=== PATIENT | male | born 1930 | race Caucasian/White ===

== ENCOUNTER 2018-06-01 15:28 | Emergency (ER) | payer OTHER, MEDICARE ==
[~2018-06-01] VITALS: Ht 177.8 cm; Wt 70.0 kg
[~2018-06-01 15:28] MED LIST: ACETONIDE; ALPH-E400 UNIT PO; ANDROGEL TD; ANDROGEL1 %; ANDROGEL1 % EX; ANDROGEL1 % TD; ASPIRIN ADULT L81 MG PO; ASPIRIN EC81 MG PO; BACLOFEN10 MG PO; CLARITIN10 M1 PO; CLOTRIM/BET1 EX; CLOTRIMAZOLE13 EX; DARVOCET N-100100 - OR; DARVOCET OR; DARVOCET-N 100100 MG OR; DETROL LA4 MG OR; ERYTHROM ETH400 MG OR; FLOMAX0.4 M1 OR; FLOMAX0.4 MG OR; FLONASE NASAL50 MCG; FLUARIX QUADRIV1 IN1 IM; HALCION0.25 MG PO; HYDROCO/APAP1 TA1 OR; IBUPROFEN800 MG PO; LOPRESSOR25 MG OR; LOPRESSOR25 MG PO; LORATADINE10 M1 PO; LORTAB 10-325 M1 TAB PO; LORTAB 5 OR; LORTAB 7.5 PO; LOTRISONE EX; LOVASTATIN20 MG OR; LOVAZA1 GM PO; MEDDOSEPAK PO; METOPROL TAR25 MG PO; MIRAPEX0.5 MG PO; MOTRIN400 MG PO; MULTI VIT PO; MULTI-VIT PO; NEXIUM40 M1 PO; OXYCODONE HCL5 MG PO; PATANASE0.6 %; PERCOCET 5/321 COMBO PO; PRAMIPEXOLE0.5 MG PO; RAPAFLO8 MG PO; SAM-E200 MG PO; TIZANIDINE HCL4 M1 PO; TIZANIDINE4 MG PO; TRAZODONE100 MG PO; TRIAMCINOLON0.025 % EX; TRIAZOLAM0.25 MG OR; TRIAZOLAM0.25 MG PO; TRICOR145 MG PO; TYLENOL 500MG TAB PO; VITAMIN D-31000 UNIT PO; VITAMIN D-32000 UNIT PO; VITAMIN E400 UNIT PO; ZANAFLEX4 M2 PO
[2018-06-01] MEDS ORDERED: MUPIROCIN21 TOP (16:22)
[2018-06-01 16:52] VITALS: BP 140/71
== END 2018-06-01 16:59 | disposition home or self-care (01) | DRG 605 ==
LOC: ED 15:28
DX: S40.011A Contusion of right shoulder, initial encounter (principal); S60.221A Contusion of right hand, initial encounter; S00.83XA Contusion of other part of head, initial encounter; S80.01XA Contusion of right knee, initial encounter; Y92.830 Public park as the place of occurrence of the external cause; W01.0XXA Fall on same level from slipping, tripping and stumbling without subsequent striking against object, initial encounter

== ENCOUNTER 2018-09-11 11:57 | Observation (INO) | payer MEDICARE ==
[~2018-09-11] VITALS: Ht 177.8 cm; Wt 71.9 kg
[~2018-09-11 11:57] MED LIST changes: +MUPIROCIN21 TOP
--- NOTE | 2018-09-11 12:20 | NUR ---
PT ARRIVED ON UNIT VIA W/C DIRECT ADMIT, ALERT AND ORIENTED X 4, ORIENTED TO ROOM AND CALL COHEN, SETTLED IN ROOM, DENIED PAIN, COUGHING OCCASIONLALLY; NON-PRODUCTIVE. ERROR MADE BY REGISTRATION BY PLACING IN WRONG ROOM CAUSING DELAY IN ORDER PROCESSING BUT THIS WAS RESOLVED WHEN DISCOVERED. PT ALTER C/O TV WAS MALFUNCTIONAL, SOAP DISPENSER IN BR FELL AND HIT HIS HAND AND PAPER DISPENCER NOT WORKING. PT WAS THEN MOVED TO ANOTHER ROOM WHERE HE WAS MORE SATISFIED, WILL CONTINUE TO MONITOR.
[2018-09-11 13:35] VITALS: BP 127/73
[2018-09-11 14:17] LABS: HEMATOCRIT 40.3 % (39.0-50.0); HEMOGLOBIN 13.3 g/dl (14.0-18.0); IMMATURE GRANULOCYTES 0.6 % (0.0-5.0); MEAN CELL VOLUME 91.8 fL CALC (80.0-100.0); MEAN CORPUSCULAR HGB 30.3 pG CALC (26.0-32.0); NEUT# 5.02 thou/uL (1.82-7.42); RED BLOOD COUNT 4.39 mill/uL (4.70-6.10); RED CELL DISTRI WIDTH 12.3 % (11.5-15.5)
[2018-09-11 14:29] LABS: CREATININE 1.6 mg/dL (0.7-1.3); POTASSIUM 4.7 mmol/l (3.5-5.1)
--- NOTE | 2018-09-11 19:22 | NUR ---
PATIENT RESTING IN BED WITH HOB ELEVATED. PATIENT IS AWAKE ALERT AND ORIENTEDX3. S/O VISITING AT BEDSIDE. PATIENT WITH IV SITE TO LEFT FOREARM WITH IVF D51/2NS PATENT AND INFUSING AT 75CC/HR. SITE APPEARS HEALTHY. PATIENT WITH NON-PRODUCTIVE COUGH. LUNGS ARE CLEAR AT THIS TIME. ABD IS SOFT. NO BM SINCE LAST TUESDAY-WILL PROVIDE PATIENT WITH PRUNE JUICE. SAFETY PRECAUTIONS REINFORCED. CALL LIGHT IN REACH. WILL CONT TO MONITOR.
[2018-09-11 19:40] VITALS: BP 147/90
--- NOTE | 2018-09-11 23:17 | NUR ---
PATIENT RESTING IN BED WATCHING TV REQUESTING ICE CREAM AND IT WAS PROVIDED. MEDICATED WITH TRAZADONE 200MG PO FOR SLEEP. IVF PATENT AND INFUSING AT 75CC/HR. SAFETY PRECAUTIONS REINFORCED. CALL LIGHT IN REACH. WILL CONT TO MONITOR.
--- NOTE | 2018-09-12 02:35 | NUR ---
APPEARS SLEEPING AT THIS TIME WITH EYES CLOSED. IVF PATENT AND INFUSING AT 75CC/HR VIA LEFT FOREARM SITE. CALL LIGHT IN REACH. WILL CONT TO MONITOR.
[2018-09-12 03:50] VITALS: BP 111/65
[2018-09-12 05:25] LABS: HEMOGLOBIN 12.4 g/dl (14.0-18.0); IMMATURE GRANULOCYTES 0.4 % (0.0-5.0); MEAN CELL VOLUME 91.6 fL CALC (80.0-100.0); MEAN CORPUSCULAR HGB 30.7 pG CALC (26.0-32.0); MEAN CORPUSCULAR HGB CONC 33.5 g/L CALC (32.0-36.0); NEUT# 4.72 thou/uL (1.82-7.42); RED BLOOD COUNT 4.04 mill/uL (4.70-6.10); RED CELL DISTRI WIDTH 12.3 % (11.5-15.5)
[2018-09-12 05:29] LABS: BILIRUBIN, TOTAL 0.3 mg/dL (0.0-1.4); CREATININE 1.4 mg/dL (0.7-1.3); TOTAL PROTEIN 5.6 g/dL (6.3-8.2)
[2018-09-12 05:30] LABS: ALBUMIN 2.9 g/dL (3.2-5.0)
--- NOTE | 2018-09-12 07:00 | NUR ---
SHIFT CHANGE REPORT FROM PEDRITO CANSECO AWAKE ALERT AND ORIENTED RESTING IN BED, STATES HE FEELS MUCH BETTER TODAY, IVF INFUSING, CALL COHEN IN REACH.
[2018-09-12 08:00] VITALS: BP 123/67
--- NOTE | 2018-09-12 12:00 | NUR ---
RESTING IN BED AFTER MEAL, ALL NEEDS ADDRESSED.
--- NOTE | 2018-09-12 12:38 | NUR ---
RESTING COMFORTABLY AFTER MEAL, ALL NEEDS ADDRESSED, CALL COHEN IN REACH.
--- NOTE | 2018-09-12 16:00 | NUR ---
SITTING UP ON SOFA, SPOUSE AT BEDSIDE, SNACK OFFERED.
[2018-09-12 17:15] VITALS: BP 131/66
--- NOTE | 2018-09-12 19:23 | NUR ---
PATIENT RESTING IN BED WITH HOB ELEVATED. PATIENT AWAKE ALERT AND ORIENTEDX3. CONT TO HAVE NON-PRODUCTIVE COUGH. REINFORCED THAT WE NEED SPUTUM SPEC IF HE IS ABLE TO EXPECTORATE SPEC. CONTAINER AT BEDSIDE. LUNGS ARE CLEAR. ABD IS SOFT-PATIENT STATES THAT HE IS HAVING BM'S TODAY-FORMED BROWN STOOL. DENIES ANY DIFFICULTY WITH URINATION. SALINE LOCK TO LEFT FOREARM-SITE APPEARS HEALTHY AT THIS TIME. SAFETY PRECAUTIONS REINFORCED. CALL LIGHT IN REACH. WILL CONT TO MONITOR.
[2018-09-12 19:41] VITALS: BP 142/79
--- NOTE | 2018-09-12 22:38 | NUR ---
PATIENT RESTING IN BED-MEDICATED WITH TRAZADONE 200MG PO FOR SLEEP. CALL LIGHT IN REACH. WILL CONT TO MONITOR.
--- NOTE | 2018-09-13 00:43 | NUR ---
APPEARS SLEEPING AT THIS TIME WITH HOB ELEVATED AND EYES CLOSED. CALL LIGHT IN REACH. WILL CONT TO MONITOR.
[2018-09-13 03:53] VITALS: BP 131/76
--- NOTE | 2018-09-13 04:15 | NUR ---
PATIENT APPEARS SLEEPING AT THIS TIME WITH EYES CLOSED. RESP ARE EVEN AND UNLABORED. CALL LIGHT IN REACH. WILL CONT TO MONITOR.
--- NOTE | 2018-09-13 07:05 | NUR ---
BEDSIDE REPORT RECEIVED BY HERMINIO. PT IS SLEEPING IN BED WITH NO S/S OF DISTRESS NOTED. CALL LIGHT IN REACH.
[2018-09-13 07:50] VITALS: BP 118/60
--- NOTE | 2018-09-13 08:30 | NUR ---
PT IS SITTING IN THE SIDE OF THE BED. DR. KAPADIA IN ROOM TO ASSESS PT. ASSESSMENT DONE REPS EVEN AND UNLABORED. PT IS A&O X3 PT DENIES PAIN AT THIS TIME. #22 LFA THAT APPEARS HEALTHY. PT DENIES NEEDS AT THIS TIME. POC DISCUSSED. SAFETY PRECAUTIONS REINFORCED AND CALL LIGHT IN REACH.
[2018-09-13] MEDS ORDERED: Levaquin PO (08:48)
[2018-09-13 08:49] LABS: HEMATOCRIT 39.5 % (39.0-50.0); HEMOGLOBIN 13.2 g/dl (14.0-18.0); IMMATURE GRANULOCYTES 0.6 % (0.0-5.0); MEAN CELL VOLUME 91.4 fL CALC (80.0-100.0); MEAN CORPUSCULAR HGB 30.6 pG CALC (26.0-32.0); MEAN CORPUSCULAR HGB CONC 33.4 g/L CALC (32.0-36.0); NEUT# 4.72 thou/uL (1.82-7.42); RED BLOOD COUNT 4.32 mill/uL (4.70-6.10); RED CELL DISTRI WIDTH 12.1 % (11.5-15.5)
[2018-09-13] MEDS ORDERED: MEDDOSEPAK PO (08:49)
[2018-09-13] MEDS ORDERED: MOTRIN400 MG PO (08:54)
[2018-09-13] MEDS ORDERED: LOVAZA1 GM PO (08:54)
[2018-09-13] MEDS ORDERED: ZPAK PO (08:54)
[2018-09-13] MEDS ORDERED: EC ASPIRIN325 MG PO (08:54)
[2018-09-13] MEDS ORDERED: BACLOFEN10 MG PO (08:54)
[2018-09-13 08:57] LABS: CREATININE 1.4 mg/dL (0.7-1.3); POTASSIUM 4.4 mmol/l (3.5-5.1)
--- NOTE | 2018-09-13 10:06 | NUR ---
Discharge instructions given. Patient verbalizes understanding of same. Discharged in stable condition via Wheelchair to Home with volunteer. All belongings sent with pt.
== END 2018-09-13 10:06 | disposition home or self-care (01) ==
LOC: MS2 11:57
PROVIDERS: ADMIT Internal Medicine Geriatric Medicine; ATTEND Internal Medicine Geriatric Medicine
DX: J20.8 Acute bronchitis due to other specified organisms (principal); M60.9 Myositis, unspecified; I10 Essential (primary) hypertension; I25.10 Atherosclerotic heart disease of native coronary artery without angina pectoris; M19.90 Unspecified osteoarthritis, unspecified site; F41.9 Anxiety disorder, unspecified

== ENCOUNTER 2018-11-29 15:12 | Observation (INO) | payer MEDICARE ==
[~2018-11-29] VITALS: Ht 172.7 cm; Wt 77.7 kg
[~2018-11-29 15:12] MED LIST changes: +EC ASPIRIN325 MG PO; +Levaquin PO; +ZPAK PO
--- NOTE | 2018-11-29 15:15 | NUR ---
PT TO ROOM WITH A SLOW STEADY GAIT.
[2018-11-29 15:47] LABS: HEMATOCRIT 38.9 % (39.0-50.0); HEMOGLOBIN 13.3 g/dl (14.0-18.0); IMMATURE GRANULOCYTES 0.6 % (0.0-5.0); MEAN CELL VOLUME 91.5 fL CALC (80.0-100.0); MEAN CORPUSCULAR HGB 31.3 pG CALC (26.0-32.0); MEAN CORPUSCULAR HGB CONC 34.2 g/L CALC (32.0-36.0); NEUT# 4.82 thou/uL (1.82-7.42); RED BLOOD COUNT 4.25 mill/uL (4.70-6.10); RED CELL DISTRI WIDTH 12.8 % (11.5-15.5)
--- NOTE | 2018-11-29 16:07 | NUR ---
PATIENT GIVEN URINAL AND ENCOURAGED TO VOID FOR SAMPLE.
[2018-11-29 16:12] LABS: ANION GAP 15 (6-22 (CALC)); BUN 21 mg/dL (8-23); BUN/CREATININE RATIO 14 (12-20 (CALC)); CARBON DIOXIDE 26 mmol/l (22-30); CHLORIDE 101 mmol/l (95-108); CREATININE 1.6 mg/dL (0.7-1.3); GFR 41 ML/MIN (>=60 (CALC)); GFR FOR AFR.AMER. 50 ML/MIN (>=60 (CALC)); POTASSIUM 4.4 mmol/l (3.5-5.1); SODIUM 138 mmol/l (137-146)
--- NOTE | 2018-11-29 16:32 | NUR ---
PATIENT HOLLERING OUT IN PAIN. STATES HE HAS A MUSCLE CRAMP TO HIS LEFT LEG. ASSISTED TO A STANDING POSITION TO RELIEVE PAIN. PATIENT STATES HE USES A HEATING PAD AT HOME. WARM PACK APPLIED TO LEFT LEG ONCE HE RETURNED TO STRETCHER. PATIENT STILL HAS NOT PROVIDED URINE SAMPLE.
--- NOTE | 2018-11-29 16:45 | NUR ---
PT ASSISTED UP TO BEDSIDE FOR C/O "CRAMP TO LT CALF". PT STATES HE GETS THESE AT HOME AND HE HAS TO STAND ON FOOT TO RESOLVE.RESOLVED AND RETURNED TO BED
[2018-11-29] MEDS ORDERED: FINASTERIDE5 MG PO (17:47)
[2018-11-29] MEDS ORDERED: ALFUZOSIN HCL E10 MG PO (17:48)
[2018-11-29] MEDS ORDERED: MAGNESIUM400 M1 PO (17:49)
[2018-11-29] MEDS ORDERED: VITAMIN D35000 UNIT PO (17:49)
--- NOTE | 2018-11-29 18:10 | NUR ---
DR KAPADIA AT BEDSIDE FOR EVAL.
[2018-11-29 18:20] VITALS: BP 165/67
--- NOTE | 2018-11-29 18:20 | NUR ---
[place]SP[place] [facility] [place]
--- NOTE | 2018-11-29 18:28 | NUR ---
PT REPORT RECIEVED FROM MARYELLEN MARKHAM. PT TRANSPORTED TO [facility] VIA WHEELCHAIR ACCOMPIANED BY Tatyana BORDEN RN @[id number]. PT AMBULATED FROM STRETCHER TO BED W/ STEADY GAIT. VS DONE. ASSESSMENT COMPLETE. PT A/O X3. SPEECH IS CLEAR. SMALL ABRASION NOTED TO POSTERIOR HEAD. SCANT BLOODY DRAINAGE VISIBLE. RESP EVEN AND UNLABORED. LUNG SOUNDS CLEAR. BOWEL SOUNDS ACTIVE X4. STRONG RADIAL AND PEDAL. #20 LAC SL. FLUSHED AND PATENT. PT C/O BACK OF HEAD, NECK, AND BUTTOCK PAIN. 7 OUT OF 10 ON PAIN SCALE. ICE APPLIED TO EACH AREA. PT DENIES ANY FURTHER NEEDS. POC DISCUSSED. SAFETY PRECAUTIONS IN PLACE. CALL LIGHT IN REACH. WILL CONTINUE TO MONITOR
--- NOTE | 2018-11-29 20:20 | NUR ---
ASSESSMENT IS COMPLETED: FAMILY IN THE ROOM. IV SITE IS FREE FROM REDNESS OR EDEMA. HR IS REG,PULSES ARE STRONG X4, ABD IS SOFT WITH ACTIVE BS. BREATH SOUNDS ARE CLEAR,BILATERALLY. TELE MONITOR IN PLACE CONTINUE TO OBSERVE AND MONITOR.
[2018-11-29 21:23] LABS: URINE BILIRUBIN - DIPSTICK NEGATIVE (NEGATIVE); URINE BLOOD DIPSTICK NEGATIVE (NEGATIVE); URINE COLOR YELLOW; URINE GLUCOSE - DIPSTICK NEGATIVE (NEGATIVE); URINE KETONE NEGATIVE (NEGATIVE); URINE LEUK ESTERASE NEGATIVE (NEGATIVE); URINE NITRITE - DIPSTICK NEGATIVE (Negative); URINE PH 7.5 (4.5-8.0); URINE PROTEIN - DIPSTICK 30 mg/dL (NEG-TRACE); URINE SPECIFIC GRAVITY 1.025; URINE UROBILINOGEN - DIPSTICK 0.2 E.U./dL (0.2)
[2018-11-29 21:25] LABS: URINE RBC 0-2 RBC/hpf (0-5); URINE WBC 0-2 WBC/hpf (0-5)
[2018-11-30] VITALS (7 sets, daily range): BP systolic 101–138; BP diastolic 51–66
--- NOTE | 2018-11-30 00:45 | NUR ---
PT IS RELAXING IN BED WITH NO DISTRESS NOTED. IV SITE IS FREE FROM REDNESS OR EDEMA.
--- NOTE | 2018-11-30 04:00 | NUR ---
PT IS RELAXING IN BED ,READING , NO DISTRESS NOTED. IV SITE IS FREE FROM REDNESS OR EDEMA. TELE MONITOR IN PLACE.
[2018-11-30 06:20] LABS: HEMOGLOBIN 12.1 g/dl (14.0-18.0); IMMATURE GRANULOCYTES 0.5 % (0.0-5.0); MEAN CELL VOLUME 91.4 fL CALC (80.0-100.0); MEAN CORPUSCULAR HGB 30.7 pG CALC (26.0-32.0); MEAN CORPUSCULAR HGB CONC 33.6 g/L CALC (32.0-36.0); NEUT# 3.65 thou/uL (1.82-7.42); RED BLOOD COUNT 3.94 mill/uL (4.70-6.10); RED CELL DISTRI WIDTH 12.7 % (11.5-15.5)
[2018-11-30 06:32] LABS: ALKALINE PHOSPHATASE 49 u/l (38-126); ANION GAP 11 (6-22 (CALC)); BILIRUBIN, TOTAL 0.5 mg/dL (0.0-1.4); BUN 19 mg/dL (8-23); BUN/CREATININE RATIO 15 (12-20 (CALC)); CALCULATED LDLCHOLESTEROL 75 mg/dL (62-129 (CALC)); CARBON DIOXIDE 26 mmol/l (22-30); CHLORIDE 104 mmol/l (95-108); CHOLESTEROL HDL RATIO 3.3 (<4.4 (CALC)); CREATININE 1.3 mg/dL (0.7-1.3); GFR 52 ML/MIN (>=60 (CALC)); GFR FOR AFR.AMER. > 60 ML/MIN (>=60 (CALC)); HDL CHOLESTEROL 43 mg/dL (>=40); POTASSIUM 4.2 mmol/l (3.5-5.1); SGOT/AST 31 u/l (19-48); SODIUM 137 mmol/l (137-146); TOTAL CHOLESTEROL 142 mg/dl (0-199); TOTAL PROTEIN 5.6 g/dL (6.3-8.2); TOTAL TRIGLYCERIDES 122 mg/dl (30-149); VLDL CHOLESTROL 24 mg/dl (0-38 (CALC))
--- NOTE | 2018-11-30 07:43 | NUR ---
PT ALERT AND ORIENTED X3, NO SIGNS OF DISTRESS NOTED, RESP EVEN AND UNLABORED. DISCUSSED POC, VERBALIZED UNDERSTANDING. ASSESSMENT COMPLETED AT THIS TIME. CALL LIGHT IN REACH,CONTINUE TO MONITOR.
--- NOTE | 2018-11-30 08:27 | NUR ---
DISCUSSED POC AND POSS DISCHARGE PLANS IF RESULTS OF TROPONIN AND EKG WNL AT 1200, PT IN AGREEMENT. CALL LIGHT IN REACH,CONTINUE TO MONITOR.
--- NOTE | 2018-11-30 09:30 | NUR ---
PT LYING IN BED READING, INFORMED PT OF ORTHOSTATIC BP TO BE OBTAINED AT THIS TIME. PT IN AGREEMENT. NOTED NO DECREASE IN BP BP OBTAINED SITTING AND STANDING. PT STATES HE HAS BEEN DIZZY AND LIGHTHEADED BEFORE BUT USUALLY 15-20 MIN AFTER HIS EXCERSIZE REGEMENT. PT STATES FAMILY HX OF DM, AND POSS COULD HAVE BEEN HIS BLOOD SUGAR. EDUCATED PT ON HYDRATION DURING ACTIVITY AND POSS HAVING CANDY OR NUTRITIONAL SHAKE PRIOR TO ACTIVITY. PT TOLERATED ORTHOSTATIC BP'S WELL, NO C/O DIZZYNESS OR LIGHTHEADEDNESS. CALL LIGHT IN REACH,CONTINUE TO MONITOR.
--- NOTE | 2018-11-30 13:34 | NUR ---
Discharge instructions given. Patient verbalizes understanding of same. Discharged in stable condition via Wheelchair to Home with spouse. All belongings sent with pt.
== END 2018-11-30 13:34 | disposition home or self-care (01) ==
LOC: ED 15:12 → ED-I 15:42 → ED 17:05 → MS2 17:06
PROVIDERS: Family Medicine; ADMIT Internal Medicine Geriatric Medicine; ATTEND Internal Medicine Geriatric Medicine
DX: R07.9 Chest pain, unspecified (principal); R55 Syncope and collapse; I10 Essential (primary) hypertension; M19.90 Unspecified osteoarthritis, unspecified site; E29.1 Testicular hypofunction; I25.10 Atherosclerotic heart disease of native coronary artery without angina pectoris; K21.9 Gastro-esophageal reflux disease without esophagitis; S00.03XA Contusion of scalp, initial encounter; W01.0XXA Fall on same level from slipping, tripping and stumbling without subsequent striking against object, initial encounter; Y93.01 Activity, walking, marching and hiking; Z79.890 Hormone replacement therapy

== ENCOUNTER 2018-12-02 10:19 | Emergency (ER) | payer MEDICARE ==
[~2018-12-02] VITALS: Ht 172.7 cm; Wt 77.2 kg
[~2018-12-02 10:19] MED LIST changes: +ALFUZOSIN HCL E10 MG PO; +FINASTERIDE5 MG PO; +MAGNESIUM400 M1 PO; +VITAMIN D35000 UNIT PO
[2018-12-02 10:56] LABS: HEMATOCRIT 37.8 % (39.0-50.0); HEMOGLOBIN 12.5 g/dl (14.0-18.0); IMMATURE GRANULOCYTES 0.3 % (0.0-5.0); MEAN CELL VOLUME 92.2 fL CALC (80.0-100.0); MEAN CORPUSCULAR HGB 30.5 pG CALC (26.0-32.0); MEAN CORPUSCULAR HGB CONC 33.1 g/L CALC (32.0-36.0); NEUT# 4.25 thou/uL (1.82-7.42); RED BLOOD COUNT 4.1 mill/uL (4.70-6.10); RED CELL DISTRI WIDTH 12.8 % (11.5-15.5)
[2018-12-02 11:02] LABS: ACT PARTIAL THROMBO TIME 24.6 SECONDS (20.0-32.5); INTERNATIONAL NORMALIZED RATIO 0.9 RATIO (0.7-1.3); PROTHROMBIN TIME 9.6 SECONDS (9.0-12.5)
[2018-12-02 11:03] LABS: ALBUMIN 3.5 g/dL (3.2-5.0); ALKALINE PHOSPHATASE 54 u/l (38-126); ANION GAP 11 (6-22 (CALC)); BILIRUBIN, TOTAL 0.6 mg/dL (0.0-1.4); BUN 24 mg/dL (8-23); BUN/CREATININE RATIO 17 (12-20 (CALC)); CARBON DIOXIDE 27 mmol/l (22-30); CHLORIDE 106 mmol/l (95-108); CREATININE 1.4 mg/dL (0.7-1.3); GFR 48 ML/MIN (>=60 (CALC)); GFR FOR AFR.AMER. 58 ML/MIN (>=60 (CALC)); POTASSIUM 4.8 mmol/l (3.5-5.1); SGOT/AST 50 u/l (19-48); SODIUM 139 mmol/l (137-146); TOTAL PROTEIN 6.7 g/dL (6.3-8.2)
[2018-12-02 12:43] LABS: URINE BILIRUBIN - DIPSTICK NEGATIVE (NEGATIVE); URINE BLOOD DIPSTICK NEGATIVE (NEGATIVE); URINE COLOR YELLOW; URINE GLUCOSE - DIPSTICK NEGATIVE (NEGATIVE); URINE KETONE NEGATIVE (NEGATIVE); URINE LEUK ESTERASE NEGATIVE (NEGATIVE); URINE NITRITE - DIPSTICK NEGATIVE (Negative); URINE PH 8.5 (4.5-8.0); URINE PROTEIN - DIPSTICK NEGATIVE (NEG-TRACE); URINE UROBILINOGEN - DIPSTICK 0.2 E.U./dL (0.2)
[2018-12-02 13:12] VITALS: BP 183/74
== END 2018-12-02 13:20 | disposition short-term general hospital (02) ==
LOC: ED 10:19
PROVIDERS: Emergency Medicine
DX: I63.9 Cerebral infarction, unspecified (principal); G83.21 Monoplegia of upper limb affecting right dominant side; R27.0 Ataxia, unspecified; I10 Essential (primary) hypertension; Z86.718 Personal history of other venous thrombosis and embolism; R00.1 Bradycardia, unspecified; K21.9 Gastro-esophageal reflux disease without esophagitis; K27.9 Peptic ulcer, site unspecified, unspecified as acute or chronic, without hemorrhage or perforation; M19.90 Unspecified osteoarthritis, unspecified site; Z86.711 Personal history of pulmonary embolism
CPT/HCPCS: Q9967

== ENCOUNTER → 2019-02-07 | Outpatient (REF) | payer MEDICARE ==
[2019-02-09 21:45] LABS: ANTI-THROMBIN III 93 (80-120)
== END | disposition home or self-care (01) ==
LOC: LAB 08:09
PROVIDERS: ATTEND Internal Medicine
DX: I74.8 Embolism and thrombosis of other arteries (principal); E23.0 Hypopituitarism; Z86.73 Personal history of transient ischemic attack (TIA), and cerebral infarction without residual deficits; I63.9 Cerebral infarction, unspecified; I82.5 Chronic embolism and thrombosis of deep veins of lower extremity

== ENCOUNTER 2020-03-16 | Emergency (ER) | payer MEDICARE ==
[2020-03-16] MEDS ORDERED: LOVAZA1 CAP PO (03:12)
[2020-03-16] MEDS ORDERED: B-122000 MCG PO (03:13)
[2020-03-16] MEDS ORDERED: VITAMIN D35000 UNIT PO (03:14)
[2020-03-16] MEDS ORDERED: ATORVASTATIN CA80 MG PO (03:14)
[2020-03-16] MEDS ORDERED: ELIQUIS5 MG PO (03:15)
[2020-03-16] MEDS ORDERED: TAMSULOSIN HCL0.4 MG PO (03:15)
[2020-03-16] MEDS ORDERED: METOPROLOL SUCC50 MG PO (03:16)
[2020-03-16] MEDS ORDERED: TORADOL PO (05:09)
[2020-08-15] MEDS ORDERED: TRAZODONE50 MG PO (10:34)
[2020-08-15] MEDS ORDERED: VITAMIN C1000 MG PO (10:34)
[2020-08-15] MEDS ORDERED: OMEPRAZOLE10 MG PO (10:35)
[2020-08-15] MEDS ORDERED: TOLTERODINE TART2 M1 PO (10:35)
== END 2020-03-16 06:00 | disposition home or self-care (01) ==
DX: S30.810A Abrasion of lower back and pelvis, initial encounter (principal); S80.212A Abrasion, left knee, initial encounter; S40.011A Contusion of right shoulder, initial encounter; I10 Essential (primary) hypertension; W01.0XXA Fall on same level from slipping, tripping and stumbling without subsequent striking against object, initial encounter; Y92.009 Unspecified place in unspecified non-institutional (private) residence as the place of occurrence of the external cause

== ENCOUNTER 2020-09-26 07:53 | Day surgery (SDC) | payer MEDICARE ==
[~2020-09-26] VITALS: Ht 172.7 cm; Wt 73.5 kg
[~2020-09-26 07:53] MED LIST changes: +ATORVASTATIN CA80 MG PO; +B-122000 MCG PO; +ELIQUIS5 MG PO; +LOVAZA1 CAP PO; +METOPROLOL SUCC50 MG PO; +OMEPRAZOLE10 MG PO; +PROAIR HFA IN; +TAMSULOSIN HCL0.4 MG PO; +TOLTERODINE TART2 M1 PO; +TORADOL PO; +TRAZODONE50 MG PO; +VITAMIN C1000 MG PO
[2020-09-26 11:44] VITALS: BP 130/64
== END 2020-09-26 12:10 | disposition home or self-care (01) ==
LOC: ORM 07:53
PROVIDERS: ATTEND Urology
PROC: 3E0K8GC Introduction of Other Therapeutic Substance into Genitourinary Tract, Via Natural or Artificial Opening Endoscopic (ICD-10-PCS; principal; 2020-09-26)
DX: N39.41 Urge incontinence (principal); N40.1 Benign prostatic hyperplasia with lower urinary tract symptoms; R35.0 Frequency of micturition; Z86.73 Personal history of transient ischemic attack (TIA), and cerebral infarction without residual deficits; Z86.718 Personal history of other venous thrombosis and embolism; Z86.711 Personal history of pulmonary embolism; Z79.01 Long term (current) use of anticoagulants; Z20.828 Contact with and (suspected) exposure to other viral communicable diseases
CPT/HCPCS: J0585

== ENCOUNTER 2021-03-06 | Emergency (ER) | payer MEDICARE ==
[2021-03-06] MEDS ORDERED: METRONIDAZOL500 MG PO (10:39)
[2021-03-06] MEDS ORDERED: BACTRIM DS1 TAB PO (10:39)
[2021-03-06] MEDS ORDERED: HYDROCO/APAP1 TA9 PO (10:40)
[2021-03-13] MEDS ORDERED: HYDROCO/APAP1 TA9 PO (11:12)
== END 2021-03-06 11:06 | disposition home or self-care (01) ==
DX: S81.812A Laceration without foreign body, left lower leg, initial encounter (principal); L03.116 Cellulitis of left lower limb; I10 Essential (primary) hypertension; K21.9 Gastro-esophageal reflux disease without esophagitis; W54.8XXA Other contact with dog, initial encounter; Y92.009 Unspecified place in unspecified non-institutional (private) residence as the place of occurrence of the external cause; Z86.718 Personal history of other venous thrombosis and embolism; Z87.11 Personal history of peptic ulcer disease; Z86.711 Personal history of pulmonary embolism; Z88.1 Allergy status to other antibiotic agents; Z88.0 Allergy status to penicillin

== ENCOUNTER 2021-03-10 12:28 | Inpatient (IN) | payer MEDICARE ==
[~2021-03-10] VITALS: Ht 172.7 cm; Wt 73.0 kg
[~2021-03-10 12:28] MED LIST changes: +BACTRIM DS1 TAB PO; +HYDROCO/APAP1 TA9 PO; +METRONIDAZOL500 MG PO
[2021-03-10 13:11] LABS: MEAN CELL VOLUME 95.7 fL CALC (80.0-100.0); MEAN CORPUSCULAR HGB 30.4 pG CALC (26.0-32.0); MEAN CORPUSCULAR HGB CONC 31.7 g/dL CAL (32.0-36.0); NEUT# 3.82 thou/uL (1.82-7.42); RED BLOOD COUNT 3.29 mill/uL (4.70-6.10); RED CELL DISTRI WIDTH 12.2 % (11.5-15.5)
[2021-03-10 13:12] LABS: HEMATOCRIT 31.5 % (39.0-50.0)
[2021-03-10 13:35] LABS: ALBUMIN 3.1 g/dL (3.2-5.0); CREATININE 1.4 mg/dL (0.7-1.3); POTASSIUM 4.6 mmol/l (3.5-5.1); TOTAL PROTEIN 5.9 g/dL (6.3-8.2)
[2021-03-10 13:37] LABS: BILIRUBIN, TOTAL 0.6 mg/dL (0.0-1.4)
[2021-03-10 16:40] VITALS: BP 143/54
[2021-03-10 19:00] VITALS: BP 128/74
[2021-03-10] MEDS ORDERED: TRAZODONE100 MG PO (20:53)
[2021-03-11 04:04] VITALS: BP 106/54
[2021-03-11 05:38] LABS: HEMATOCRIT 28.4 % (39.0-50.0); MEAN CELL VOLUME 95.6 fL CALC (80.0-100.0); MEAN CORPUSCULAR HGB 30.3 pG CALC (26.0-32.0); MEAN CORPUSCULAR HGB CONC 31.7 g/dL CAL (32.0-36.0); RED BLOOD COUNT 2.97 mill/uL (4.70-6.10); RED CELL DISTRI WIDTH 12.3 % (11.5-15.5)
[2021-03-11 06:02] LABS: ANION GAP 7 (6-22 (CALC)); BUN 14 mg/dL (8-23); BUN/CREATININE RATIO 11 (12-20 (CALC)); CARBON DIOXIDE 25 mmol/l (22-30); CHLORIDE 105 mmol/l (95-108); CREATININE 1.3 mg/dL (0.7-1.3); GFR 52 ML/MIN (>=60 (CALC)); GFR FOR AFR.AMER. > 60 ML/MIN (>=60 (CALC)); MAGNESIUM 1.8 mg/dL (1.6-2.3); POTASSIUM 4.6 mmol/l (3.5-5.1); SODIUM 133 mmol/l (137-146)
[2021-03-11 07:51] VITALS: BP 103/51
[2021-03-11 11:06] VITALS: BP 105/47
[2021-03-11 15:00] VITALS: BP 112/57
[2021-03-11 19:00] VITALS: BP 116/63
[2021-03-12 04:00] VITALS: BP 114/56
[2021-03-12 05:39] LABS: HEMATOCRIT 28.9 % (39.0-50.0); HEMOGLOBIN 9.1 g/dl (14.0-18.0); MEAN CELL VOLUME 95.4 fL CALC (80.0-100.0); MEAN CORPUSCULAR HGB CONC 31.5 g/dL CAL (32.0-36.0); RED BLOOD COUNT 3.03 mill/uL (4.70-6.10); RED CELL DISTRI WIDTH 12.2 % (11.5-15.5)
[2021-03-12 06:05] LABS: ANION GAP 7 (6-22 (CALC)); BUN 14 mg/dL (8-23); BUN/CREATININE RATIO 13 (12-20 (CALC)); CARBON DIOXIDE 25 mmol/l (22-30); CHLORIDE 106 mmol/l (95-108); CREATININE 1.1 mg/dL (0.7-1.3); GFR > 60 ML/MIN (>=60 (CALC)); GFR FOR AFR.AMER. > 60 ML/MIN (>=60 (CALC)); POTASSIUM 4.8 mmol/l (3.5-5.1); SODIUM 134 mmol/l (137-146)
[2021-03-12 07:47] VITALS: BP 126/67
[2021-03-12] MEDS ORDERED: OMNICEF300 MG PO (11:16)
[2021-03-13] MEDS ORDERED: HYDROCO/APAP1 TA9 PO (11:12)
[2021-03-15 13:15] VITALS: BP 137/64
== END 2021-03-12 13:32 | disposition home or self-care (01) | DRG 572 ==
LOC: ED 12:28 → ED-I 14:00 → ED 15:20 → MS2 15:21
PROVIDERS: Nurse Practitioner; ADMIT Internal Medicine; ATTEND Internal Medicine
PROC: 0JBP0ZZ Excision of Left Lower Leg Subcutaneous Tissue and Fascia, Open Approach (ICD-10-PCS; principal; 2021-03-11)
PROC: 3E0234Z Introduction of Serum, Toxoid and Vaccine into Muscle, Percutaneous Approach (ICD-10-PCS; 2021-03-11)
DX: L03.116 Cellulitis of left lower limb (principal); S80.812A Abrasion, left lower leg, initial encounter; I10 Essential (primary) hypertension; I48.0 Paroxysmal atrial fibrillation; E78.5 Hyperlipidemia, unspecified; E03.9 Hypothyroidism, unspecified; K21.9 Gastro-esophageal reflux disease without esophagitis; G47.30 Sleep apnea, unspecified; W54.8XXA Other contact with dog, initial encounter; B96.1 Klebsiella pneumoniae [K. pneumoniae] as the cause of diseases classified elsewhere; B95.4 Other streptococcus as the cause of diseases classified elsewhere; Z23 Encounter for immunization; Z88.0 Allergy status to penicillin; Z87.11 Personal history of peptic ulcer disease; Z86.711 Personal history of pulmonary embolism; Z86.718 Personal history of other venous thrombosis and embolism; Z88.1 Allergy status to other antibiotic agents; Z20.822 Contact with and (suspected) exposure to COVID-19
CPT/HCPCS: Q3014

== ENCOUNTER 2021-05-24 15:44 | Emergency (ER) | payer MEDICARE ==
[~2021-05-24] VITALS: Ht 172.7 cm; Wt 71.8 kg
[~2021-05-24 15:44] MED LIST changes: +OMNICEF300 MG PO
[2021-05-24 17:10] LABS: HEMATOCRIT 36.9 % (39.0-50.0); HEMOGLOBIN 12.2 g/dl (14.0-18.0); IMMATURE GRANULOCYTES 0.2 % (0.0-5.0); MEAN CELL VOLUME 91.6 fL CALC (80.0-100.0); MEAN CORPUSCULAR HGB 30.3 pG CALC (26.0-32.0); MEAN CORPUSCULAR HGB CONC 33.1 g/dL CAL (32.0-36.0); NEUT# 4.15 thou/uL (1.82-7.42); RED BLOOD COUNT 4.03 mill/uL (4.70-6.10); RED CELL DISTRI WIDTH 12.4 % (11.5-15.5)
[2021-05-24 17:19] LABS: ALBUMIN 3.4 g/dL (3.2-5.0); ALKALINE PHOSPHATASE 58 u/l (38-126); ANION GAP 11 (6-22 (CALC)); BILIRUBIN, TOTAL 0.3 mg/dL (0.0-1.4); BUN 18 mg/dL (8-23); BUN/CREATININE RATIO 15 (12-20 (CALC)); CARBON DIOXIDE 27 mmol/l (22-30); CHLORIDE 104 mmol/l (95-108); CREATININE 1.2 mg/dL (0.7-1.3); GFR 57 ML/MIN (>=60 (CALC)); GFR FOR AFR.AMER. > 60 ML/MIN (>=60 (CALC)); LIPASE 37 u/l (23-300); SGOT/AST 27 u/l (19-48); SODIUM 138 mmol/l (137-146); TOTAL PROTEIN 6.3 g/dL (6.3-8.2)
[2021-05-24 17:24] LABS: D-DIMER 0.3 mg/L (0.19-0.60)
[2021-05-24 17:28] LABS: ACT PARTIAL THROMBO TIME 25.9 SECONDS (20.0-32.5); PROTHROMBIN TIME 10.6 SECONDS (9.0-12.5)
[2021-05-24 18:07] LABS: URINE BILIRUBIN - DIPSTICK NEGATIVE (NEGATIVE); URINE BLOOD DIPSTICK NEGATIVE (NEGATIVE); URINE COLOR YELLOW; URINE GLUCOSE - DIPSTICK NEGATIVE (NEGATIVE); URINE KETONE NEGATIVE (NEGATIVE); URINE LEUK ESTERASE NEGATIVE (NEGATIVE); URINE PROTEIN - DIPSTICK NEGATIVE (NEG-TRACE); URINE UROBILINOGEN - DIPSTICK 0.2 E.U./dL (0.2)
[2021-05-24 18:08] LABS: URINE NITRITE - DIPSTICK NEGATIVE (Negative)
[2021-05-24 18:45] VITALS: BP 188/81
== END 2021-05-24 19:03 | disposition home or self-care (01) ==
LOC: ED 15:44
DX: R06.02 Shortness of breath (principal); I27.20 Pulmonary hypertension, unspecified; D64.9 Anemia, unspecified; I48.91 Unspecified atrial fibrillation; I10 Essential (primary) hypertension; E03.9 Hypothyroidism, unspecified; E78.5 Hyperlipidemia, unspecified; K21.9 Gastro-esophageal reflux disease without esophagitis; Z87.11 Personal history of peptic ulcer disease; Z79.01 Long term (current) use of anticoagulants; Z86.711 Personal history of pulmonary embolism; Z86.718 Personal history of other venous thrombosis and embolism; Z20.822 Contact with and (suspected) exposure to COVID-19
CPT/HCPCS: Q9967

== ENCOUNTER 2021-11-26 04:15 | Observation (INO) | payer MEDICARE ==
[~2021-11-26] VITALS: Ht 172.7 cm; Wt 75.0 kg
[2021-11-26 05:36] LABS: HEMATOCRIT 36.8 % (39.0-50.0); IMMATURE GRANULOCYTES 0.2 % (0.0-5.0); MEAN CELL VOLUME 91.8 fL CALC (80.0-100.0); MEAN CORPUSCULAR HGB 29.9 pG CALC (26.0-32.0); MEAN CORPUSCULAR HGB CONC 32.6 g/dL CAL (32.0-36.0); NEUT# 8.36 thou/uL (1.82-7.42); RED BLOOD COUNT 4.01 mill/uL (4.70-6.10); RED CELL DISTRI WIDTH 12.5 % (11.5-15.5)
[2021-11-26 05:56] LABS: D-DIMER 0.39 mg/L (0.19-0.60)
[2021-11-26 05:59] LABS: ACT PARTIAL THROMBO TIME 31.9 SECONDS (20.0-32.5); ALBUMIN 2.9 g/dL (3.2-5.0); ALKALINE PHOSPHATASE 72 u/l (38-126); ANION GAP 8 (6-22 (CALC)); BUN 19 mg/dL (8-23); BUN/CREATININE RATIO 14 (12-20 (CALC)); CARBON DIOXIDE 30 mmol/l (22-30); CHLORIDE 101 mmol/l (95-108); CREATININE 1.4 mg/dL (0.7-1.3); GFR 48 ML/MIN (>=60 (CALC)); GFR FOR AFR.AMER. 58 ML/MIN (>=60 (CALC)); INTERNATIONAL NORMALIZED RATIO 1.1 RATIO (0.7-1.3); POTASSIUM 4.2 mmol/l (3.5-5.1); PROTHROMBIN TIME 11.1 SECONDS (9.0-12.5); SGOT/AST 20 u/l (19-48); SODIUM 135 mmol/l (137-146); TOTAL PROTEIN 5.8 g/dL (6.3-8.2)
[2021-11-26 06:00] LABS: BILIRUBIN, TOTAL 0.8 mg/dL (0.0-1.4)
[2021-11-26 06:10] LABS: MYOGLOBIN 74 ng/mL (0 - 121)
[2021-11-26 07:50] VITALS: BP 103/58
[2021-11-26 11:00] VITALS: BP 96/59
[2021-11-26 11:08] LABS: C-REACTIVE PROTEIN 8.9 mg/dL (0-0.9)
[2021-11-26 14:50] VITALS: BP 113/58
[2021-11-26 19:00] VITALS: BP 154/70
[2021-11-27] VITALS: BP 179/85
[2021-11-27 00:48] VITALS: BP 149/71
[2021-11-27 04:00] VITALS: BP 144/73
[2021-11-27 05:29] LABS: HEMATOCRIT 34.9 % (39.0-50.0); HEMOGLOBIN 11.3 g/dl (14.0-18.0); MEAN CELL VOLUME 91.6 fL CALC (80.0-100.0); MEAN CORPUSCULAR HGB 29.7 pG CALC (26.0-32.0); MEAN CORPUSCULAR HGB CONC 32.4 g/dL CAL (32.0-36.0); RED BLOOD COUNT 3.81 mill/uL (4.70-6.10); RED CELL DISTRI WIDTH 12.6 % (11.5-15.5)
[2021-11-27 05:34] LABS: ANION GAP 8 (6-22 (CALC)); BUN 22 mg/dL (8-23); BUN/CREATININE RATIO 18 (12-20 (CALC)); CARBON DIOXIDE 26 mmol/l (22-30); CHLORIDE 104 mmol/l (95-108); CREATININE 1.2 mg/dL (0.7-1.3); GFR 57 ML/MIN (>=60 (CALC)); GFR FOR AFR.AMER. > 60 ML/MIN (>=60 (CALC)); MAGNESIUM 1.7 mg/dL (1.6-2.3); POTASSIUM 4.4 mmol/l (3.5-5.1); SODIUM 134 mmol/l (137-146)
[2021-11-27 10:51] VITALS: BP 111/55
[2021-11-27] MEDS ORDERED: PREDNISONE20 MG PO (11:31)
[2021-11-27] MEDS ORDERED: FLEXERIL5 M1 PO (11:31)
== END 2021-11-27 14:16 | disposition home health service (06) ==
LOC: ED 04:15 → ED-I 06:34 → ED 06:46 → MS2 06:47
PROVIDERS: Family Medicine; Nurse Practitioner; ADMIT Internal Medicine; ATTEND Internal Medicine
DX: R07.89 Other chest pain (principal); R50.9 Fever, unspecified; I12.9 Hypertensive chronic kidney disease with stage 1 through stage 4 chronic kidney disease, or unspecified chronic kidney disease; N18.9 Chronic kidney disease, unspecified; I48.0 Paroxysmal atrial fibrillation; I25.10 Atherosclerotic heart disease of native coronary artery without angina pectoris; E78.5 Hyperlipidemia, unspecified; E03.9 Hypothyroidism, unspecified; K21.9 Gastro-esophageal reflux disease without esophagitis; N40.0 Benign prostatic hyperplasia without lower urinary tract symptoms; Z86.718 Personal history of other venous thrombosis and embolism; Z86.711 Personal history of pulmonary embolism; Z87.11 Personal history of peptic ulcer disease; Z20.822 Contact with and (suspected) exposure to COVID-19
CPT/HCPCS: J1650